=== PATIENT | female | born 1985 | race American Indian/Alaskan Native ===

== ENCOUNTER 2020-10-26 22:18 | Emergency (ER) | payer MEDICAID ==
[2020-10-26] MEDS ORDERED: fentaNYL 100 MCG/2 ML SDV IM ONE (22:53)
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
--- NOTE | 2020-10-27 10:13 | CT ---
Head wo Cont CLINICAL HISTORY: Head trauma COMPARISON: None TECHNIQUE: Transverse scans were obtained from the base of the skull through the vertex without IV contrast on a multislice, multidetector CT scanner. Auto dosage reduction and iterative reconstruction techniques employed. FINDINGS: No focal abnormal parenchymal densities are identified. There is no mass effect, hemorrhage, or extraaxial collection. The basal cisterns and sulci over the convexities are normal. The ventricles are normal. There is scalp swelling in scalp laceration on the left. No fracture seen. IMPRESSION: No acute intracranial process
== END 2020-10-27 11:09 | disposition home or self-care (01) ==
LOC: JP.ED 22:18
DX: F10.120 Alcohol abuse with intoxication, uncomplicated (principal); S01.03XA Puncture wound without foreign body of scalp, initial encounter; Z91.030 Bee allergy status; Z88.6 Allergy status to analgesic agent; Z87.891 Personal history of nicotine dependence; Z79.899 Other long term (current) drug therapy; Y04.0XXA Assault by unarmed brawl or fight, initial encounter
CPT/HCPCS: 70450; 96372; 99284; J3010